=== PATIENT | female | born 1995 | race Caucasian/White ===

== ENCOUNTER → 2018-02-08 | Outpatient (CLI) | payer OTHER ==
[2018-02-08 23:16] LABS: HEPATITIS B SURFACE ANTIBODY <2.0 (())
== END ==
LOC: COL.LAB 08:58
PROVIDERS: Family Medicine
DX: Z78.9 Other specified health status (principal)

== ENCOUNTER → 2018-03-10 | Outpatient (REF) ==
[2018-03-11 00:03] LABS: HEPATITIS B SURFACE ANTIBODY <2.0 (())
== END ==
LOC: ZLAB.WCH 15:40
PROVIDERS: Family Medicine
DX: Z01.89 Encounter for other specified special examinations (principal)

== ENCOUNTER → 2018-03-10 | Outpatient (CLI) | payer OTHER | LOC: COL.LAB 08:16 | DX: Z01.89 Encounter for other specified special examinations (principal) ==

== ENCOUNTER → 2018-10-02 | Outpatient (CLI) | payer OTHER | LOC: ZCOL.LAB 13:34 | PROVIDERS: Family Medicine | DX: Z01.84 Encounter for antibody response examination (principal) ==